=== PATIENT | female | born 1965 | race Caucasian/White ===

== ENCOUNTER 2016-06-26 22:59 | Emergency (ER) | payer SELFPAY ==
[~2016-06-26] VITALS: Ht 170.2 cm; Wt 131.5 kg
[2016-06-27] MEDS ORDERED: LOSA100T6 PO (00:33)
[2016-06-27] MEDS ORDERED: METO25TA9 PO (00:34)
[2016-06-27] MEDS ORDERED: LIPITOR80 MG PO (00:34)
[2016-06-27] MEDS ORDERED: HYDR12.58 PO (00:34)
[2016-06-27] MEDS ORDERED: CLONIDINE HCL 0.1 MG TABLET PO ONE (01:15)
--- NOTE | 2016-06-27 01:19 | RAD ---
PQRS STATEMENT One or more of the following individualized dose reduction techniques were utilized for this study: 1.Automated exposure control 2.Adjustment of the mA and/or kV according to patient size 3.Use of iterative reconstruction technique CT HEAD Indication: headache x 4 days; nause
hx: hypertensionReason: headache for 4 days nausea HTN / Spl. Instructions: / History: COMPARISON: None TECHNIQUE: 5 mm contiguous axial images were obtained from the skull base to the vertex in both bone and soft tissue algorithm. FINDINGS: No abnormal attenuation within the brain parenchyma. No evidence of acute intracranial hemorrhage. No extra-axial fluid collections. No mass effect or midline shift.][Ventricular size is appropriate. Basal cisterns are patent. No fractures identified. Globes and orbits are within normal limits. Paranasal sinuses and mastoid air cells are clear. IMPRESSION: No acute intracranial abnormality. Electronically signed by: Ady Armstrong (Jun 27, 2016 01:17:30)
[2016-06-27] MEDS ORDERED: DIPHENHYDRAMINE 50 MG/ML VIAL IVP ONE (02:30)
[2016-06-27] MEDS ORDERED: KETOROLAC TROMETHAMINE 30 MG/ML SYRINGE. IV ONE (02:30)
[2016-06-27] MEDS ORDERED: METOCLOPRAMIDE HCL 10 MG/2 ML VIAL. IV ONE (02:30)
--- NOTE | 2016-06-27 03:05 | PHYS DOC ---
Past Medical History Past Medical History: Hypertension, Hypothyroid Past Surgical History: Hysterectomy Alcohol Use: None Drug Use: None Adult General Chief Complaint Chief Complaint: HEADACHE HPI HPI Patient is a 50 year old female with a history significant for hypertension who presents to the ER today secondary to headache which she reports occurs whenever her blood pressure is elevated. Patient reports a history of hypertension and migraines in the past. Patient denies any diabetes liver lung or kidney problems. No history of coronary artery disease. Patient denies any fever or shaking chills nausea vomiting diarrhea or cough cold rhinorrhea abdominal pain or neuro symptoms. Patient has any double vision blurred vision weakness in her upper or lower extremities. Review of Systems Review of Systems Constitutional: Denies fever or chills [] Eyes: Denies change in visual acuity, redness, or eye pain [] All other review of systems are negative except as documented in the history of present illness portion. Current Medications Current Medications Current Medications Medications (Trade) Dose Ordered Sig/Emilee Start Time Stop Time Status Last Admin Dose Admin Clonidine HCl (Catapres) 0.2 mg 1X ONCE 06/27/16 01:15 06/27/16 01:16 DC 06/27/16 01:06 0.2 MG Diphenhydramine HCl (Benadryl) 25 mg 1X ONCE 06/27/16 02:30 06/27/16 02:31 DC 06/27/16 02:39 25 MG Ketorolac Tromethamine (Toradol) 15 mg 1X ONCE 06/27/16 02:30 06/27/16 02:31 DC 06/27/16 02:39 15 MG Metoclopramide HCl (Reglan) 10 mg 1X ONCE 06/27/16 02:30 06/27/16 02:31 DC 06/27/16 02:38 10 MG Allergies Allergies Allergies Coded Allergies Type Severity Reaction Last Updated Verified lisinopril Allergy Intermediate 06/27/16 Yes Physical Exam Physical Exam Constitutional: Well developed, well nourished, no acute distress, non-toxic appearance. [] HENT: Normocephalic, atraumatic, bilateral external ears normal, oropharynx moist, no oral exudates, nose normal. [] Eyes: PERRLA, EOMI, conjunctiva normal, no discharge. [] Neck: Normal range of motion, no tenderness, supple, no stridor. [] Cardiovascular:Heart rate regular rhythm, no murmur [] Lungs & Thorax: Bilateral breath sounds clear to auscultation [] Abdomen: Bowel sounds normal, soft, no tenderness, no masses, no pulsatile masses. [] Skin: Warm, dry, no erythema, no rash. [] Back: No tenderness, no CVA tenderness. [] Extremities: No tenderness, no cyanosis, no clubbing, ROM intact, no edema. [] Neurologic: Alert and oriented X 3, normal motor function, normal sensory function, no focal deficits noted. [] Psychologic: Affect normal, judgement normal, mood normal. [] Normal funduscopic exam. Current Patient Data Vital Signs Vital Signs Date Time Temp Pulse Resp B/P Pulse Ox O2 Delivery O2 Flow Rate FiO2 06/27/16 01:38 76 191/100 98 Room Air 06/27/16 00:10 97.7 18 97.7 EKG EKG [] Interpretation Time: CT of the head reveals no acute pathology. Radiology/Procedures Radiology/Procedures [] Course & Med Decision Making Course & Med Decision Making Pertinent Labs and Imaging studies reviewed. (See chart for details) [] This is a 50-year-old female with history significant for hypertension who presented to the ER today complaining of a headache likely secondary to her elevated blood pressure. Patient was given clonidine 0.2 mg by mouth here with significant improvement in her blood pressure. Patient reports her headache is significantly improved. Patient was given Benadryl and Reglan and Toradol for her headache and currently at 3 AM patient is requesting to be discharged home. Dragon Disclaimer Dragon Disclaimer This electronic medical record was generated, in whole or in part, using a voice recognition dictation system. Departure Departure Impression: Primary Impression: Migraine Additional Impression: Hypertension Disposition: 01 HOME, SELF-CARE Condition: IMPROVED Referrals: LOUIS ALLEN DO (PCP) Patient Instructions: Hypertension, Migraine Headache Problem Qualifiers DAYNA TYSON MD Jun 27, 2016 03:05
[2016-06-27 03:10] VITALS: BP 159/83
== END 2016-06-27 03:20 | disposition home or self-care (01) ==
LOC: ER 22:59
DX: G43.909 Migraine, unspecified, not intractable, without status migrainosus (principal); I10 Essential (primary) hypertension; E03.9 Hypothyroidism, unspecified; Z88.8 Allergy status to other drugs, medicaments and biological substances
CPT/HCPCS: 70450; 96374; 96375; 99284; J1200; J1885; J2765